=== PATIENT | male | born 1990 | race Caucasian/White ===

== ENCOUNTER 2023-11-02 22:32 | Emergency (ER) | payer SELFPAY ==
[2023-11-02] MEDS ORDERED: Ibuprofen 600 MG Tab PO ONE (23:04)
== END 2023-11-02 23:18 | disposition home or self-care (01) ==
LOC: MW.ED 22:32
DX: T74.11XA Adult physical abuse, confirmed, initial encounter (principal); F17.210 Nicotine dependence, cigarettes, uncomplicated; Y04.8XXA Assault by other bodily force, initial encounter
CPT/HCPCS: 99283; A9270

== ENCOUNTER 2024-06-21 00:11 | Emergency (ER) | payer BC | END 2024-06-21 00:49 | LOC: MW.ED 00:11 | DX: Z02.89 Encounter for other administrative examinations (principal); F10.920 Alcohol use, unspecified with intoxication, uncomplicated | CPT/HCPCS: 99283 ==

== ENCOUNTER 2024-06-21 04:23 | Emergency (ER) | payer BC ==
[2024-06-21] MEDS: Acetaminophen 500 MG Tab PO ONE (04:49)
== END 2024-06-21 05:18 ==
LOC: MW.ED 04:23
DX: S09.90XA Unspecified injury of head, initial encounter (principal); S09.93XA Unspecified injury of face, initial encounter; G44.319 Acute post-traumatic headache, not intractable; M54.2 Cervicalgia; Y04.8XXA Assault by other bodily force, initial encounter
CPT/HCPCS: 70450; 70486; 72125; 99284; A9270